=== PATIENT | female | born 1940 | race Caucasian/White ===

== ENCOUNTER → 2019-02-04 11:22 | Outpatient (CLI) | payer MEDICARE, OTHER, SELFPAY ==
[2019-02-04 12:00] LABS: BUN Creatinine Ratio 21.1 (6-22); Blood Urea Nitrogen 19 mg/dL (7-17); Calcium 9.3 mg/dL (8.4-10.2); Carbon Dioxide 31 mmol/L (22-32); Chloride 96 mmol/L (98-107); Estimated Glomerular Filt Rate > 60.0 mL/min (>60); Glucose 101 mg/dL (80-110); HEMOLYSIS < 15 (0-50); Potassium 3.4 mmol/L (3.4-5.1); Sodium 137 mmol/L (137-145)
== END ==
PROVIDERS: PCP Student in an Organized Health Care Education/Training Program; Visit Provider Student in an Organized Health Care Education/Training Program
DX: I10 Essential (primary) hypertension (principal)
CPT/HCPCS: 36415; 80048

== ENCOUNTER 2019-03-12 16:49 | Emergency (ER) | payer MEDICARE, OTHER, SELFPAY ==
[2019-03-12 17:01] VITALS: BP 141/87; PULSE 105; RESP 15; TEMP 36.5; O2SAT 97; BMI 23.4
--- NOTE | 2019-03-12 17:04 | DI.RAD.S_ITS ---
PROCEDURE: XR CHEST 2V INDICATIONS: cough TECHNIQUE: 2 views of the chest were acquired. COMPARISON: [facility], , CHEST 2 VIEW, 01/31/2011, 8:47. FINDINGS: Surgical changes and devices: Cholecystectomy clips are seen. Lungs and pleura: Lungs are clear, yet hyperexpanded. No pleural effusions or pneumothorax. Mediastinum: The cardiac contours are within normal limits. The aorta demonstrates calcification and tortuosity. Bones and chest wall: No suspicious bony abnormalities. Age-appropriate bony degenerative changes are seen. Accentuated thoracic kyphosis is seen. S-shaped scoliotic curvature is seen. Soft tissues appear unremarkable. IMPRESSION: No focal infiltrates are seen. Hyperexpanded lungs are seen. Postoperative and degenerative changes are seen. Dictated by: Juan Doyle M.D. on 03/12/2019 at 16:26 Approved by: Juan Doyle M.D. on 03/12/2019 at 16:27
--- NOTE | 2019-03-12 17:19 | ED_ITS ---
HPI - URI/Sore Throat <Tari Gomez, [employer] WRITER-BC - Last Filed: 03/12/19 18:02> General Chief Complaint: Upper Respiratory Symptoms Stated Complaint: coughing, told by doctor to see ER Time Seen by Provider: 03/12/19 16:53 Source: patient Mode of arrival: Ambulatory Limitations: no limitations History of Present Illness HPI Narrative: The patient is an 79-year-old female former smoker with history of hypertension osteoporosis who presents with a chief complaint of coughing for the past 2-3 weeks. She denies any fevers nausea vomiting or diarrhea. She denies any chest pain or shortness of breath. She states that she has a cold, and during nursing triage stated that she should not have come to the emergency department. She states that she tried to refill her guaifenesin with codeine g iven to her by her PCP and was told that she could not get a refill yet from the pharmacy which appear to cause distress. She denies any sore throat or ear pain but complains of postnasal drip. She complains of sinus headaches that radiate to her jaw. She complains of copious purulent nasal discharge. She states she occasionally coughs up phlegm, but has lots of nasal drainage. She has not ta denisse anything other than the guaifenesin with codeine to feel better, though notes that she has started taking MiraLax every day for cough. I discussed that that is not generally used for cough. She denies any wheezing, and states that there is nothing wrong with her lungs, she just has a cold. Related Data Home Medications Medication Instructions Recorded Confirmed zolpidem 5 mg PO QDAY #0 01/31/11 aspirin 81 mg tablet,delayed 81 mg PO DAILY 02/04/19 02/04/19 release Previous Rx's Medication Instructions Recorded chlorthalidone 25 mg tablet 25 mg PO DAILY #90 tab 02/04/19 potassium chloride 10 mEq 10 meq PO DAILY #90 tab 02/04/19 tablet,extended release pravastatin 20 mg tablet 20 mg PO BEDTIME #90 tab 02/04/19 codeine 10 mg-guaifenesin 100 mg/5 10 ml PO Q4-6H PRN #120 ml 03/10/19 mL oral liquid amoxicillin-pot clavulanate 1 tab PO BID #20 tab 03/12/19 [Augmentin] Allergies Allergy/AdvReac Type Severity Reaction Status Date / Time No Known Drug Allergies Allergy Verified 03/12/19 17:00 Review of Systems <BEBE Veloz - Last Filed: 03/12/19 18:02> Review of Systems Narrative: GENERAL: Denies chills, fatigue, malaise, fever, sweats. HEENT: See HPI RESPIRATORY: See HPI CARDIOVASCULAR: Denies chest pain, palpitations, orthopnea, edema, GASTROINTESTINAL: Denies nausea, vomiting, abdominal pain, diarrhea, constipation, melena. : Denies dysuria, frequency, incontinence, hematuria, urinary retention. MUSCULOSKELETAL: denies weakness, joint pain, or bony pain SKIN: Denies rash, skin lesions, or other NEUROLOGIC: Denies weakness, headache, numbness, change in speech, confusion, seizures, incoordination. PSYCHIATRIC: No concerning psychosocial issues. 12 point review of systems is negative except for those stated above Patient History <BEBE Veloz - Last Filed: 03/12/19 18:02> Medical History Breast cancer (Inactive ~1984) Osteoporosis (Chronic) Transient ischemic attack (Inactive ~1999) Surgical History Anesthesia (Resolved) History of bilateral mastectomy (Resolved) History of cholecystectomy (Resolved) Family History Father History of heart disease Social History Smoking Status: Former smoker alcohol intake frequency: holidays/special occasions only Substance Use Type: does not use Exam <BEBE Veloz - Last Filed: 03/12/19 18:02> Narrative Exam Narrative: GENERAL: Thin elderly female in no acute distress HEAD: Atraumatic. Normocephalic. No temporal or scalp tenderness. Bilateral sinus tenderness to palpation-maxillary EYES: Pupils equal round and reactive. Extraocular motions intact. No scleral icterus. No injection or drainage. ENT: Nose without bleeding, purulent drainage or septal hematoma. Throat without erythema, tonsillar hypertrophy or exudate. Uvula midline. Airway patent., starting noted. NECK: Trachea midline. No JVD or lymphadenopathy. Supple, nontender, no meningeal signs. CARDIOVASCULAR: Regular rate and rhythm without murmurs, gallops, or rubs. RESPIRATORY: Coarse bilaterally to auscultation. Breath sounds equal bilaterally. No wheezes, rales, or rhonchi. Cough noted on exam. No increased respiratory effort. No accessory muscle use. GASTROINTESTINAL: Abdomen soft, non-tender, nondistended. No hepato- splenomegaly, or palpable masses. No guarding. EXTREMITIES: No clubbing, cyanosis, or edema. No joint tenderness, effusion, or edema noted. BACK: Nontender without deformity or crepitance. No flank tenderness. NEURO: AOx3. SKIN: No rash or erythema on visible skin Initial Vital Signs Initial Vital Signs: Vital Signs Temperature 97.7 F 03/12/19 17:01 Pulse Rate 105 H 03/12/19 17:01 Respiratory Rate 15 03/12/19 17:01 Blood Pressure 141/87 H 03/12/19 17:01 Pulse Oximetry 97 03/12/19 17:01 <Pauline Weeks DO - Last Filed: 03/13/19 07:44> Initial Vital Signs Initial Vital Signs: Vital Signs Temperature 97.7 F 03/12/19 17:01 Pulse Rate 105 H 03/12/19 17:01 Respiratory Rate 15 03/12/19 17:01 Blood Pressure 141/87 H 03/12/19 17:01 Pulse Oximetry 97 03/12/19 17:01 Course <JANUSZ VelozBC - Last Filed: 03/12/19 18:02> Orders Ordered: ED Orders 03/12/19 17:04 XR chest 2V Stat Respiratory Panel (Film Array) Stat RT Consult Eval and Treat NOW Vital Signs Vital signs: Vital Signs - 8 hr 03/12/19 17:01 Temperature 97.7 F Pulse Rate 105 H Respiratory Rate 15 Blood Pressure 141/87 H Pulse Oximetry 97 <Pauline Weeks DO - Last Filed: 03/13/19 07:44> Orders Ordered: ED Orders 03/12/19 17:04 XR chest 2V Stat Respiratory Panel (Film Array) Stat RT Consult Eval and Treat NOW Vital Signs Vital signs: Vital Signs - 8 hr 03/12/19 17:01 Temperature 97.7 F Pulse Rate 105 H Respiratory Rate 15 Blood Pressure 141/87 H Pulse Oximetry 97 [facility] - URI/Sore Throat <Tari GomezTRACI-BC - Last Filed: 03/12/19 18:02> Imaging Data Chest x-ray: Radiologist's impression: [facility] Narrative Medical decision making narrative: The patient is an 79-year-old female who presents with a chief complaint of a cough. She denies any fevers vomiting or diarrhea. She denies any chest pain or shortness of breath. Chest x-ray shows no pneumonia. However given her 2-3 weeks of sinus symptoms, sinus headaches, copious purulence nasal discharge despite [id number] remedies, we have elected to treat her for a bacterial sinus infection. I encouraged follow-up with primary care provider in the next few days, encouraged use of Flonase as well as sinus rinse. Discussed coming back to emergency department for any acute concerns such as chest pain shortness of breath etc. Patient states understanding of return precautions as well as follow-up care and has no questions or concerns. Discharge Plan Departure Patient Disposition: Home Clinical Impression: Acute bacterial sinusitis, Cough Discharge Date/Time: 03/12/19 18:08 Instructions: How to Use an Incentive Spirometer, Sinusitis (Alternative Therapy), DI for Sinusitis, DI for Sinus Headache Activity Restrictions/Additional Instructions: Given the duration of your symptoms, we have elected to treat you for a bacterial sinus infection. Most sinus infections are viral, though your says lasted long enough to consider antibiotic treatment Please use Flonase as well as a sinus rinse Please follow up with primary care provider in the next few days Please come back to the emergency department for any acute concerns such as chest pain or shortness of breath Please follow the recommendations provided by the respiratory therapist as well Prescriptions: New amoxicillin-pot clavulanate [Augmentin] 875-125 mg tablet 1 tab PO BID Qty: 20 RF: 0 No Action zolpidem 5 MG tablet 5 mg PO QDAY Qty: 0 RF: 0 potassium chloride 10 mEq tablet extended release 10 meq PO DAILY Qty: 90 RF: 1 codeine-guaifenesin 10-100 mg/5 mL liquid 10 ml PO Q4-6H PRN (Reason: cough) Qty: 120 RF: 1 aspirin 81 mg tablet,delayed release (DR/EC) 81 mg PO DAILY RF: 0 chlorthalidone 25 mg tablet 25 mg PO DAILY Qty: 90 RF: 3 pravastatin 20 mg tablet 20 mg PO BEDTIME Qty: 90 RF: 3 Referrals: Mikal Quintero MD [Primary Care Provider] -
[2019-03-12 18:00] VITALS: PULSE 90; RESP 20; O2SAT 96
== END 2019-03-12 18:08 | disposition home or self-care (01) ==
PROVIDERS: Emergency Provider Nurse Practitioner Family; PCP Student in an Organized Health Care Education/Training Program
DX: J01.80 Other acute sinusitis (principal); B96.89 Other specified bacterial agents as the cause of diseases classified elsewhere; R05 Cough
CPT/HCPCS: 71046; 94667; 99282; 99283

== ENCOUNTER → 2019-04-23 11:13 | Outpatient (CLI) | payer MEDICARE, OTHER, SELFPAY ==
[2019-04-23 13:06] LABS: BUN Creatinine Ratio 24.4 (6-22); Blood Urea Nitrogen 22 mg/dL (7-17); Calcium 9.4 mg/dL (8.4-10.2); Carbon Dioxide 30 mmol/L (22-32); Chloride 99 mmol/L (98-107); Estimated Glomerular Filt Rate > 60.0 mL/min (>60); Glucose 85 mg/dL (80-110); HEMOLYSIS < 15 (0-50); Potassium 3.5 mmol/L (3.4-5.1); Sodium 137 mmol/L (137-145)
== END ==
PROVIDERS: PCP Student in an Organized Health Care Education/Training Program; Visit Provider Student in an Organized Health Care Education/Training Program
DX: E78.2 Mixed hyperlipidemia (principal); I10 Essential (primary) hypertension; T50.905A Adverse effect of unspecified drugs, medicaments and biological substances, initial encounter; Z86.39 Personal history of other endocrine, nutritional and metabolic disease
CPT/HCPCS: 36415; 80048

== ENCOUNTER → 2019-05-17 12:32 | Oncology outpatient (ONC) | payer MEDICARE, OTHER, SELFPAY ==
[2019-05-17 13:00] VITALS: BP 133/80; PULSE 71; RESP 16; TEMP 36.9; O2SAT 97
--- NOTE | 2019-05-17 13:33 | PC.NURSE ---
Patient decided that she did not want to have her shot here today. Patient stated that she was returning home to [place] next week and that she preferred to call her doctor there when she returned home.
== END ==
PROVIDERS: PCP Student in an Organized Health Care Education/Training Program; Referring Provider Student in an Organized Health Care Education/Training Program; Visit Provider Student in an Organized Health Care Education/Training Program
DX: M81.0 Age-related osteoporosis without current pathological fracture (principal); Z53.29 Procedure and treatment not carried out because of patient's decision for other reasons